=== PATIENT | male | born 1955 | race Caucasian/White ===

== ENCOUNTER → 2022-11-12 | Outpatient (CLI) | payer MEDICARE | LOC: DX 09:42 | PROVIDERS: ATTEND Student in an Organized Health Care Education/Training Program | DX: E11.59 Type 2 diabetes mellitus with other circulatory complications (principal); M86.9 Osteomyelitis, unspecified; L03.90 Cellulitis, unspecified | CPT/HCPCS: 36569; 71045 ==

== ENCOUNTER 2023-01-17 08:00 | Outpatient (RCR) | payer MEDICARE ==
[2023-01-17] MEDS ORDERED: MUPIROCIN 2% OINT 22 GM TUBE ONE (13:49)
[2023-01-17] MEDS ORDERED: LIDOCAINE VISC 2% SOLN 15 ML UDC ONE (13:49)
[2023-01-17] MEDS ORDERED: ATORVASTATIN CA20 MG PO (23:33)
[2023-01-17] MEDS ORDERED: HYDROXYZINE HCL25 MG PO (23:41)
[2023-01-17] MEDS ORDERED: TAMSULOSIN PO (23:41)
[2023-01-17] MEDS ORDERED: GABAPENTIN300 MG PO (23:41)
[2023-01-17] MEDS ORDERED: AMITRIPTYLINE H25 MG PO (23:41)
[2023-01-17] MEDS ORDERED: PANTOPRAZOLE SO40 MG PO (23:41)
[2023-01-17] MEDS ORDERED: FUROSEMIDE20 MG PO (23:41)
[2023-01-17] MEDS ORDERED: LISINOPRIL40 MG PO (23:41)
[2023-01-17] MEDS ORDERED: FLUOXETINE HCL40 MG PO (23:41)
[2023-01-17] MEDS ORDERED: ACETAMINOPHEN-1 EAC4 PO (23:41)
[2023-01-17] MEDS ORDERED: HYDROCHLOROTH12.5 MG PO (23:41)
== END 2023-01-25 ==
LOC: WCC 08:00
PROVIDERS: ATTEND Family Medicine Adult Medicine
DX: E11.621 Type 2 diabetes mellitus with foot ulcer (principal); L03.115 Cellulitis of right lower limb; L97.412 Non-pressure chronic ulcer of right heel and midfoot with fat layer exposed; R60.0 Localized edema
CPT/HCPCS: 87071; 87075; 87186; 87205

== ENCOUNTER 2023-01-17 17:42 | Inpatient (IN) | payer MEDICARE ==
[~2023-01-17] VITALS: Ht 180.3 cm; Wt 142.0 kg
[2023-01-17 18:40] LABS: BASOPHILS # (AUTO) 0.1 (0.0-0.1); BASOPHILS % 0.9 % (0.0-1.0); EOSINOPHILS # (AUTO) 0.2 (0.0-0.4); HEMATOCRIT 30.7 % (38.2-49.6); HEMOGLOBIN 9.9 g/dL (14.0-18.0); LYMPHOCYTES # (AUTO) 2.1 (1.0-3.2); LYMPHOCYTES % 24.1 % (18.0-39.1); MEAN CORPUSCULAR HEMOGLOBIN 26.1 pg (28-32); MEAN CORPUSCULAR HGB CONC 32.2 g/dL (31-35); MEAN CORPUSCULAR VOLUME 80.8 fL (81-99); MONOCYTES # (AUTO) 0.7 (0.2-0.8); NEUTROPHILS # (AUTO) 5.6 (2.1-6.9); NEUTROPHILS % 64.8 % (38.7-80.0); PLATELET COUNT 384 x10e3/uL (140-360); RED CELL DISTRIBUTION WIDTH 14.3 % (11.7-14.4)
[2023-01-17 18:53] LABS: ALBUMIN 3.4 g/dL (3.5-5.0); ALBUMIN/GLOBULIN RATIO 0.8 (0.8-2.0); ANION GAP 18.4 mmol/L (8-16); CALCIUM 9.2 mg/dL (8.4-10.2); CREATININE, SERUM 2.49 mg/dL (0.72-1.25); POTASSIUM 4.4 mmol/L (3.5-5.1)
[2023-01-17] MEDS ORDERED: ACETAMINOPHEN 325 MG TAB PO PRN (19:45)
[2023-01-17] MEDS ORDERED: ONDANSETRON HCL INJ 2MG/ML 2ML 2 MG/ML VIAL IV PRN (19:45)
[2023-01-17] MEDS ORDERED: Vancomycin IV 1 GM in SODIUM CHLORIDE 0.9% 250ML 250 ML IV SCH ×2 (19:45→20:00)
[2023-01-17] MEDS ORDERED: DEXTROSE 50% SYRINGE 50 ML IV PRN ×2 (19:45→20:00)
[2023-01-17] MEDS: INSULIN REGULAR, HUMAN 100 UNIT/1 ML SQ SCH (21:00)
[2023-01-17] MEDS ORDERED: INSULIN REGULAR, HUMAN 100 UNIT/1 ML SQ SCH (21:00)
[2023-01-17] MEDS: SODIUM CHLORIDE 0.9% 1000ML 1,000 ML IV SCH (21:23)
[2023-01-17] MEDS: ONDANSETRON HCL INJ 2MG/ML 2ML 2 MG/ML VIAL IV PRN (21:25)
[2023-01-17] MEDS: Morphine 4mg INJECTION 4 MG/ML INJ IV PRN (21:26)
[2023-01-17 22:57] VITALS: BP 137/85; PULSE 85; RESP 20; TEMP 97.8; O2SAT 100
[2023-01-17] MEDS ORDERED: ATORVASTATIN CA20 MG PO (23:33)
[2023-01-17] MEDS ORDERED: FUROSEMIDE20 MG PO (23:41)
[2023-01-17] MEDS ORDERED: PANTOPRAZOLE SO40 MG PO (23:41)
[2023-01-17] MEDS ORDERED: TAMSULOSIN PO (23:41)
[2023-01-17] MEDS ORDERED: LISINOPRIL40 MG PO (23:41)
[2023-01-17] MEDS ORDERED: HYDROXYZINE HCL25 MG PO (23:41)
[2023-01-17] MEDS ORDERED: ACETAMINOPHEN-1 EAC4 PO (23:41)
[2023-01-17] MEDS ORDERED: FLUOXETINE HCL40 MG PO (23:41)
[2023-01-17] MEDS ORDERED: HYDROCHLOROTH12.5 MG PO (23:41)
[2023-01-17] MEDS ORDERED: AMITRIPTYLINE H25 MG PO (23:41)
[2023-01-17] MEDS ORDERED: GABAPENTIN300 MG PO (23:41)
[2023-01-17 23:46] VITALS: BP 137/85; PULSE 85; RESP 20; TEMP 97.8; O2SAT 100
[2023-01-18] VITALS (9 sets, daily range): BP systolic 87–137; BP diastolic 40–61; PULSE 63–85; RESP 17–19; TEMP 97.5–98.3; O2SAT 96–100
[2023-01-18] MEDS: ONDANSETRON HCL INJ 2MG/ML 2ML 2 MG/ML VIAL IV PRN ×2 (02:06→06:33)
[2023-01-18] MEDS: Morphine 4mg INJECTION 4 MG/ML INJ IV PRN ×5 (02:07→21:53)
[2023-01-18 05:41] LABS: BASOPHILS # (AUTO) 0.1 (0.0-0.1); EOSINOPHILS # (AUTO) 0.2 (0.0-0.4); HEMATOCRIT 29.7 % (38.2-49.6); HEMOGLOBIN 9.2 g/dL (14.0-18.0); LYMPHOCYTES # (AUTO) 2.2 (1.0-3.2); MEAN CORPUSCULAR HEMOGLOBIN 25.5 pg (28-32); MEAN CORPUSCULAR VOLUME 82.3 fL (81-99); MONOCYTES # (AUTO) 0.7 (0.2-0.8); MONOCYTES % 8.9 % (4.4-11.3); NEUTROPHILS # (AUTO) 4.1 (2.1-6.9); NEUTROPHILS % 56.8 % (38.7-80.0); PLATELET COUNT 334 x10e3/uL (140-360); RED BLOOD COUNT 3.61 x10e6/uL (4.3-5.7); RED CELL DISTRIBUTION WIDTH 14.3 % (11.7-14.4)
[2023-01-18 06:25] LABS: ALBUMIN/GLOBULIN RATIO 0.7 (0.8-2.0); ANION GAP 13.2 mmol/L (8-16); CREATININE, SERUM 1.6 mg/dL (0.72-1.25); POTASSIUM 4.2 mmol/L (3.5-5.1)
[2023-01-18] MEDS: SODIUM CHLORIDE 0.9% 1000ML 1,000 ML IV SCH ×2 (06:33→17:16)
[2023-01-18] MEDS ORDERED: NON-FORMULARY MEDICATION (Acetaminophen With Codeine (Acetaminophen-Cod #4 Tablet) 1 TAB) PO PRN (08:30)
[2023-01-18] MEDS ORDERED: AMITRIPTYLINE HCL 25 MG TAB PO SCH (09:00)
[2023-01-18] MEDS: INSULIN REGULAR, HUMAN 100 UNIT/1 ML SQ SCH ×4 (09:15→21:00)
[2023-01-18] MEDS: GABAPENTIN 300 MG CAP PO SCH ×3 (09:16→21:53)
[2023-01-18] MEDS: HYDROXYZINE HCL 25 MG TAB PO SCH ×2 (09:17→17:14)
[2023-01-18] MEDS: TAMSULOSIN HCL 0.4 MG CAP PO SCH (09:17)
[2023-01-18] MEDS: FLUOXETINE HCL 20 MG CAP PO SCH (09:17)
[2023-01-18] MEDS: PANTOPRAZOLE SOD 40 MG TABEC PO SCH (12:20)
[2023-01-18] MEDS: VANCOMYCIN 300 ML IV SCH (15:45)
[2023-01-18] MEDS ORDERED: VANCOMYCIN 300 ML IV SCH (21:00)
[2023-01-18] MEDS: HEPARIN SOD (PORCINE) 5,000 UNIT/ML VIAL SC SCH (21:52)
[2023-01-18] MEDS: ATORVASTATIN 40 MG TAB PO SCH (21:52)
[2023-01-18] MEDS: AMITRIPTYLINE HCL 25 MG TAB PO SCH (23:18)
[2023-01-19] VITALS (7 sets, daily range): BP systolic 112–127; BP diastolic 52–71; PULSE 58–71; RESP 15–18; TEMP 97.8–98.4; O2SAT 96–98
[2023-01-19] MEDS: SODIUM CHLORIDE 0.9% 1000ML 1,000 ML IV SCH ×3 (02:00→21:05)
[2023-01-19] MEDS: Morphine 4mg INJECTION 4 MG/ML INJ IV PRN ×5 (04:11→22:05)
[2023-01-19] MEDS: INSULIN REGULAR, HUMAN 100 UNIT/1 ML SQ SCH ×4 (07:30→21:00)
[2023-01-19] MEDS: FLUOXETINE HCL 20 MG CAP PO SCH (08:43)
[2023-01-19] MEDS: HYDROXYZINE HCL 25 MG TAB PO SCH ×2 (08:43→16:11)
[2023-01-19] MEDS: PANTOPRAZOLE SOD 40 MG TABEC PO SCH (08:43)
[2023-01-19] MEDS: TAMSULOSIN HCL 0.4 MG CAP PO SCH (08:43)
[2023-01-19] MEDS: ONDANSETRON HCL INJ 2MG/ML 2ML 2 MG/ML VIAL IV PRN ×3 (08:44→18:00)
[2023-01-19] MEDS: GABAPENTIN 300 MG CAP PO SCH ×3 (08:50→21:06)
[2023-01-19] MEDS: HEPARIN SOD (PORCINE) 5,000 UNIT/ML VIAL SC SCH ×2 (08:55→21:08)
[2023-01-19 14:37] LABS: ANION GAP 20.2 mmol/L (8-16); CREATININE, SERUM 1.11 mg/dL (0.72-1.25); POTASSIUM 5.2 mmol/L (3.5-5.1)
[2023-01-19] MEDS: VANCOMYCIN 300 ML IV SCH (16:10)
[2023-01-19] MEDS: AMITRIPTYLINE HCL 25 MG TAB PO SCH (21:06)
[2023-01-19] MEDS: ATORVASTATIN 40 MG TAB PO SCH (21:06)
[2023-01-20] VITALS (8 sets, daily range): BP systolic 114–142; BP diastolic 60–81; PULSE 68–80; RESP 16–21; TEMP 97.3–98.4; O2SAT 96–100
[2023-01-20] MEDS: INSULIN REGULAR, HUMAN 100 UNIT/1 ML SQ SCH ×4 (07:30→21:00)
[2023-01-20] MEDS ORDERED: Morphine 2mg Syringe 2 MG/ML SYR ONE (07:53)
[2023-01-20] MEDS: PANTOPRAZOLE SOD 40 MG TABEC PO SCH (08:06)
[2023-01-20] MEDS: TAMSULOSIN HCL 0.4 MG CAP PO SCH (08:06)
[2023-01-20] MEDS: SODIUM CHLORIDE 0.9% 1000ML 1,000 ML IV SCH (08:06)
[2023-01-20] MEDS: FLUOXETINE HCL 20 MG CAP PO SCH (08:06)
[2023-01-20] MEDS: HYDROXYZINE HCL 25 MG TAB PO SCH ×2 (08:07→16:03)
[2023-01-20] MEDS: GABAPENTIN 300 MG CAP PO SCH ×3 (08:07→21:31)
[2023-01-20] MEDS: ONDANSETRON HCL INJ 2MG/ML 2ML 2 MG/ML VIAL IV PRN ×3 (08:07→17:32)
[2023-01-20] MEDS: HEPARIN SOD (PORCINE) 5,000 UNIT/ML VIAL SC SCH ×2 (08:11→21:33)
[2023-01-20] MEDS: Morphine 4mg INJECTION 4 MG/ML INJ IV PRN ×4 (08:23→21:32)
[2023-01-20 08:31] LABS: BASOPHILS # (AUTO) 0.1 (0.0-0.1); BASOPHILS % 1.3 % (0.0-1.0); EOSINOPHILS # (AUTO) 0.2 (0.0-0.4); EOSINOPHILS % 3.3 % (0.0-6.0); HEMATOCRIT 32.4 % (38.2-49.6); HEMOGLOBIN 10.1 g/dL (14.0-18.0); LYMPHOCYTES # (AUTO) 1.8 (1.0-3.2); LYMPHOCYTES % 34.1 % (18.0-39.1); MEAN CORPUSCULAR HEMOGLOBIN 25.5 pg (28-32); MEAN CORPUSCULAR HGB CONC 31.2 g/dL (31-35); MEAN CORPUSCULAR VOLUME 81.8 fL (81-99); MONOCYTES # (AUTO) 0.4 (0.2-0.8); MONOCYTES % 6.5 % (4.4-11.3); NEUTROPHILS # (AUTO) 2.9 (2.1-6.9); NEUTROPHILS % 54.6 % (38.7-80.0); PLATELET COUNT 380 x10e3/uL (140-360); RED BLOOD COUNT 3.96 x10e6/uL (4.3-5.7); RED CELL DISTRIBUTION WIDTH 13.9 % (11.7-14.4)
[2023-01-20 08:46] LABS: ANION GAP 13.6 mmol/L (8-16); CALCIUM 9.5 mg/dL (8.4-10.2); CREATININE, SERUM 0.99 mg/dL (0.72-1.25); POTASSIUM 4.6 mmol/L (3.5-5.1)
[2023-01-20] MEDS: VANCOMYCIN 300 ML IV SCH (15:07)
[2023-01-20] MEDS: AMITRIPTYLINE HCL 25 MG TAB PO SCH (21:32)
[2023-01-20] MEDS: ATORVASTATIN 40 MG TAB PO SCH (21:32)
[2023-01-21] VITALS (8 sets, daily range): BP systolic 109–153; BP diastolic 59–72; PULSE 67–72; RESP 16–20; TEMP 97.2–98; O2SAT 95–99
[2023-01-21] MEDS: INSULIN REGULAR, HUMAN 100 UNIT/1 ML SQ SCH ×4 (07:30→20:51)
[2023-01-21] MEDS ORDERED: SODIUM CHLORIDE 0.9% 250ML 250 ML ONE (07:49)
[2023-01-21] MEDS: PANTOPRAZOLE SOD 40 MG TABEC PO SCH (08:33)
[2023-01-21] MEDS: HYDROXYZINE HCL 25 MG TAB PO SCH ×2 (08:33→16:00)
[2023-01-21] MEDS: TAMSULOSIN HCL 0.4 MG CAP PO SCH (08:33)
[2023-01-21] MEDS: GABAPENTIN 300 MG CAP PO SCH ×3 (08:33→20:43)
[2023-01-21] MEDS: CEFTRIAXONE 2 GM in SODIUM CHLORIDE 0.9% 100 ML IV SCH (08:33)
[2023-01-21] MEDS: FLUOXETINE HCL 20 MG CAP PO SCH (08:33)
[2023-01-21] MEDS: Morphine 4mg INJECTION 4 MG/ML INJ IV PRN (08:34)
[2023-01-21] MEDS: HEPARIN SOD (PORCINE) 5,000 UNIT/ML VIAL SC SCH ×2 (08:47→20:52)
[2023-01-21] MEDS: ACETAMINOPHEN/CODEINE 300MG - 30MG TAB PO PRN ×3 (11:23→20:43)
[2023-01-21] MEDS: ATORVASTATIN 40 MG TAB PO SCH (20:43)
[2023-01-21] MEDS: AMITRIPTYLINE HCL 25 MG TAB PO SCH (20:43)
[2023-01-22] VITALS: BP 167/60; PULSE 61; RESP 18; TEMP 97.7; O2SAT 99
[2023-01-22 04:00] VITALS: BP 121/65; PULSE 80; RESP 18; TEMP 97.6; O2SAT 96
[2023-01-22] MEDS: GABAPENTIN 300 MG CAP PO SCH ×2 (07:57→16:20)
[2023-01-22] MEDS: FLUOXETINE HCL 20 MG CAP PO SCH (07:57)
[2023-01-22] MEDS: HYDROXYZINE HCL 25 MG TAB PO SCH ×2 (07:57→16:20)
[2023-01-22] MEDS: TAMSULOSIN HCL 0.4 MG CAP PO SCH (07:57)
[2023-01-22] MEDS: CEFTRIAXONE 2 GM in SODIUM CHLORIDE 0.9% 100 ML IV SCH (07:57)
[2023-01-22] MEDS: PANTOPRAZOLE SOD 40 MG TABEC PO SCH (07:57)
[2023-01-22] MEDS: ACETAMINOPHEN/CODEINE 300MG - 30MG TAB PO PRN ×2 (07:58→14:17)
[2023-01-22] MEDS: HEPARIN SOD (PORCINE) 5,000 UNIT/ML VIAL SC SCH (08:00)
[2023-01-22] MEDS: INSULIN REGULAR, HUMAN 100 UNIT/1 ML SQ SCH ×3 (08:00→16:21)
[2023-01-22 08:11] VITALS: BP 120/64; PULSE 70; RESP 18; TEMP 97.7; O2SAT 97
[2023-01-22 09:02] VITALS: BP 120/64; PULSE 70; RESP 18; TEMP 97.7; O2SAT 97
[2023-01-22] MEDS: Morphine 4mg INJECTION 4 MG/ML INJ IV PRN (11:35)
[2023-01-22 11:40] VITALS: BP 121/64; PULSE 68; RESP 18; TEMP 97.9; O2SAT 96
[2023-01-22] MEDS ORDERED: ONDANSETRON HCL 4 MG ORAL DISINTEGRATING TAB PO PRN (13:15)
[2023-01-22 16:14] VITALS: BP 145/77; PULSE 79; RESP 18; TEMP 98; O2SAT 98
== END 2023-01-22 19:00 | disposition home or self-care (01) | DRG 638 ==
LOC: ER 18:31 → ERHOLD 19:55 → MED/SURG3 22:32
PROVIDERS: ADMIT Internal Medicine; ATTEND Internal Medicine
PROC: 02HV33Z Insertion of Infusion Device into Superior Vena Cava, Percutaneous Approach (ICD-10-PCS; principal; 2023-01-20)
PROC: B548ZZA Ultrasonography of Superior Vena Cava, Guidance (ICD-10-PCS; 2023-01-20)
DX: E11.69 Type 2 diabetes mellitus with other specified complication (principal); L03.115 Cellulitis of right lower limb; M86.8X7 Other osteomyelitis, ankle and foot; L97.418 Non-pressure chronic ulcer of right heel and midfoot with other specified severity; Z68.41 Body mass index [BMI] 40.0-44.9, adult; N17.9 Acute kidney failure, unspecified; B95.61 Methicillin susceptible Staphylococcus aureus infection as the cause of diseases classified elsewhere; D64.9 Anemia, unspecified; K21.9 Gastro-esophageal reflux disease without esophagitis; E11.621 Type 2 diabetes mellitus with foot ulcer; E11.40 Type 2 diabetes mellitus with diabetic neuropathy, unspecified; I12.9 Hypertensive chronic kidney disease with stage 1 through stage 4 chronic kidney disease, or unspecified chronic kidney disease; E11.22 Type 2 diabetes mellitus with diabetic chronic kidney disease; N18.30 Chronic kidney disease, stage 3 unspecified; Z20.822 Contact with and (suspected) exposure to COVID-19; E66.9 Obesity, unspecified; I89.0 Lymphedema, not elsewhere classified; B95.1 Streptococcus, group B, as the cause of diseases classified elsewhere; Z80.8 Family history of malignant neoplasm of other organs or systems; Z82.49 Family history of ischemic heart disease and other diseases of the circulatory system
CPT/HCPCS: 36415; 36569; 71045; 80048; 80053; 80202; 82948; 83036; 85025; 87040; 87071; 87205; 96361; 96372; 99252; 99284; J0696; J1644; J2270; J2405; J2543; J3410; J7030; J7050